=== PATIENT | female | born 1995 ===

== ENCOUNTER 2017-12-19 12:20 | Emergency (ER) | payer OTHER ==
[~2017-12-19] VITALS: Ht 162.6 cm; Wt 80.0 kg
[~2017-12-19 12:20] MED LIST: DIVA125 PO; LAMO25 PO
[2017-12-19] MEDS ORDERED: IOHEXOL 350 MG/ML 10 ML VIAL (for RAD DIAG) IVCONTRAST ONE (12:21)
[2017-12-19] MEDS ORDERED: ONDANSETRON HCL 4 MG/2 ML VIAL ONE (12:33)
[2017-12-19 12:36] VITALS: BP 140/70; PULSE 113; RESP 15; TEMP 98.2; O2SAT 100
[2017-12-19] MEDS ORDERED: LAMO200T PO (12:41)
[2017-12-19] MEDS ORDERED: DIVA125T PO (12:41)
[2017-12-19] MEDS ORDERED: SODIUM CHLOR 0.9% 1000 ML INJ 1,000 ML IV ONE (13:30)
[2017-12-19] MEDS ORDERED: ONDANSETRON HCL 4 MG/2 ML VIAL IV PUSH ONE (13:30)
--- NOTE | 2017-12-19 13:36 | PD ---
HPI Chief Complaint: GI Complaint Time Seen by Provider: 12:35 Travel History International Travel<30 days: No Contact w/Intl Traveler<30days: No Traveled to known affect area: No History of Present Illness HPI 22yo F with PMH of epilepsy and mental retardation here with c/o nausea and NBNB vomiting for 5 days. Said her neurologist Dr. Stoll added her back on depakote 5 days ago because she had a recent seizure. Said she has been on depakote before. Said she stopped taking the depakote a few days ago. PFSH Past Medical History Diminished Hearing: No Medical other: Yes (MENTAL DELAY) Immunizations Current: Yes (UTD WITH CHILDHOOD IMMUNIZATIONS) Seizures: Yes ?: LMP: CURRENT Past Surgical History Other Surgery: Yes (VAGAL NERVE STIMULATOR 4-5 YRS AGO) Social History Alcohol Use: No Tobacco Use: No (PARENT SMOKES) Allergies-Medications (Allergen,Severity, Reaction): Uncoded Allergies: zonagran (Allergy, Unknown, 12/19/17) Reported Meds & Prescriptions Reported Meds & Active Scripts Active Reported Lamotrigine 200 Mg Tab 200 Mg PO BID Divalproex DR (Divalproex Sodium) 125 Mg Tabdr 125 Mg PO BID Review of Systems Except as stated in HPI: all other systems reviewed are Neg Physical Exam Narrative GENERAL: 22yo F in mild distress. SKIN: Focused skin assessment warm/dry. HEAD: Atraumatic. Normocephalic. EYES: Pupils equal and round. No scleral icterus. No injection or drainage. ENT: No nasal bleeding or discharge. Mucous membranes pink and moist. NECK: Trachea midline. No JVD. CARDIOVASCULAR: Regular rate and rhythm. No murmur appreciated. RESPIRATORY: No accessory muscle use. Clear to auscultation. Breath sounds equal bilaterally. GASTROINTESTINAL: Abdomen soft, non-tender, nondistended.No rebound tenderness or guarding. MUSCULOSKELETAL: No obvious deformities. No clubbing. No cyanosis. No edema. NEUROLOGICAL: Awake and alert. No obvious cranial nerve deficits. Motor grossly within normal limits. Normal speech. Data Data Last Documented VS Vital Signs Date Time Temp Pulse Resp B/P (MAP) Pulse Ox O2 Delivery O2 Flow Rate FiO2 12/19/17 12:36 98.2 113 15 140/70 (93) 100 Orders Orders Ondansetron Inj (Zofran Inj) (12/19/17 12:33) Ondansetron Inj (Zofran Inj) (12/19/17 13:30) Sodium Chlor 0.9% 1000 Ml Inj (Ns 1000 M (12/19/17 13:30) Complete Blood Count With Diff (12/19/17 13:29) Comprehensive Metabolic Panel (12/19/17 13:29) Lipase (12/19/17 13:29) Bhcg Screen Qualitative (12/19/17 13:29) Metoclopramide Inj (Reglan Inj) (12/19/17 15:00) Ct Abd/Pel W Iv Contrast(Rout) (12/19/17 ) Promethazine Inj (Phenergan Inj) (12/19/17 16:15) Iohexol 350 Inj (Omnipaque 350 Inj) (12/19/17 12:21) Labs Laboratory Tests Test 12/19/17 13:50 White Blood Count 11.2 TH/MM3 Red Blood Count 4.91 MIL/MM3 Hemoglobin 14.9 GM/DL Hematocrit 44.1 % Mean Corpuscular Volume 89.8 FL Mean Corpuscular Hemoglobin 30.3 PG Mean Corpuscular Hemoglobin Concent 33.7 % Red Cell Distribution Width 12.4 % Platelet Count 242 TH/MM3 Mean Platelet Volume 8.8 FL Neutrophils (%) (Auto) 78.4 % Lymphocytes (%) (Auto) 13.6 % Monocytes (%) (Auto) 7.4 % Eosinophils (%) (Auto) 0.2 % Basophils (%) (Auto) 0.4 % Neutrophils # (Auto) 8.8 TH/MM3 Lymphocytes # (Auto) 1.5 TH/MM3 Monocytes # (Auto) 0.8 TH/MM3 Eosinophils # (Auto) 0.0 TH/MM3 Basophils # (Auto) 0.0 TH/MM3 CBC Comment DIFF FINAL Differential Comment Blood Urea Nitrogen 18 MG/DL Creatinine 0.72 MG/DL Random Glucose 99 MG/DL Total Protein 7.9 GM/DL Albumin 4.1 GM/DL Calcium Level 9.7 MG/DL Alkaline Phosphatase 17 U/L Aspartate Amino Transf (AST/SGOT) 12 U/L Alanine Aminotransferase (ALT/SGPT) 16 U/L Total Bilirubin 0.3 MG/DL Sodium Level 139 MEQ/L Potassium Level 3.9 MEQ/L Chloride Level 106 MEQ/L Carbon Dioxide Level 26.0 MEQ/L Anion Gap 7 MEQ/L Estimat Glomerular Filtration Rate 102 ML/MIN Lipase 99 U/L Beta HCG, Qualitative LESS THAN 1 MIU/ML MDM Medical Decision Making Medical Screen Exam Complete: Yes Emergency Medical Condition: Yes Differential Diagnosis Cyclic vomiting vs. conversion disorder Narrative Course 22yo F here with c/o nausea and vomiting for 5 days. Pt does not actually have vomit but is dry heaving into a bucket. Abdomen is soft, NT/ND. Pt given zofran x2, reglan and is still nauseous. Pt said she has abdominal pain during vomiting. Labs reviewed, WBC 11.2. CMP unremarkable. negative. Will given promethazine IM. Pt given NS IVF. I asked pt's mother if she has this often and she said no and that she normally does not get sick. CTa/p showed no acute process. Pt reevaluated after promethazine and is finally feeling better. Pt tolerating PO now Return precautions given. Diagnosis Primary Impression: Nausea Patient Instructions: General Instructions Departure Forms: Tests/Procedures Additional Instructions: Please follow up with your primary care physician in 2-3 days. Return to the ED if symptoms worsen. Med/Other Pt SpecificInfo: Prescription(s) given Scripts Ondansetron Odt (Zofran Odt) 4 Mg Tab 4 MG SL Q12HR Y for Nausea/Vomiting, #7 TAB 0 Refills Prov: Shanita Girard 12/19/17 Disposition: 01 DISCHARGE HOME Condition: Stable EraJessicaShanita DO Dec 19, 2017 13:35
[2017-12-19 14:08] LABS: AUTOMATED NEUTROPHIL # 8.8 TH/MM3 (1.8-7.7); BASOPHIL % 0.4 % (0.0-2.0); EOSINOPHIL % 0.2 % (0.0-4.0); HEMATOCRIT 44.1 % (35.0-46.0); HEMOGLOBIN 14.9 GM/DL (11.6-15.3); LYMPH % 13.6 % (9.0-44.0); LYMPHOCYTE # 1.5 TH/MM3 (1.0-4.8); MEAN CELL VOLUME 89.8 FL (80.0-100.0); MEAN CORPUSCULAR HEMOGLOBIN 30.3 PG (27.0-34.0); MEAN CORPUSCULAR HGB CONC 33.7 % (32.0-36.0); MEAN PLATELET VOLUME 8.8 FL (7.0-11.0); MONO % 7.4 % (0.0-8.0); MONOCYTE # 0.8 TH/MM3 (0-0.9); NEUT % 78.4 % (16.0-70.0); PLATELET COUNT 242 TH/MM3 (150-450); RED BLOOD COUNT 4.91 MIL/MM3 (4.00-5.30); RED CELL DISTRIBUTION WIDTH 12.4 % (11.6-17.2); WHITE BLOOD COUNT 11.2 TH/MM3 (4.0-11.0)
[2017-12-19 14:27] LABS: ALT (GPT) 16 U/L (10-53)
[2017-12-19 14:32] LABS: ALBUMIN 4.1 GM/DL (3.4-5.0); ALKALINE PHOSPHATASE 17 U/L (45-117); AST (GOT) 12 U/L (15-37); BLOOD UREA NITROGEN 18 MG/DL (7-18); CALCIUM 9.7 MG/DL (8.5-10.1); CHLORIDE 106 MEQ/L (98-107); CREATININE 0.72 MG/DL (0.50-1.00); GLOMERULAR FILTRATION RATE 102 ML/MIN (>89); GLUCOSE,RANDOM 99 MG/DL (74-106); LIPASE 99 U/L (73-393); SODIUM (NA) 139 MEQ/L (136-145); TOTAL BILIRUBIN ADULT 0.3 MG/DL (0.2-1.0); TOTAL PROTEIN 7.9 GM/DL (6.4-8.2)
[2017-12-19] MEDS ORDERED: METOCLOPRAMIDE INJ 10 MG in SODIUM CHLORIDE 0.9% INJ 50 ML IV ONE (15:00)
[2017-12-19] MEDS ORDERED: PROMETHAZINE INJ 25 MG/ML VIAL IM ONE (16:15)
--- NOTE | 2017-12-19 16:50 | RADRPT ---
EXAM DATE/TIME: 12/19/2017 16:34 [facility] COMPARISON: No previous studies available for comparison. INDICATIONS : Vomiting for five days. IV CONTRAST: 75 cc Omnipaque 350 (iohexol) IV ORAL CONTRAST: No oral contrast ingested. RADIATION DOSE: 6.64 CTDIvol (mGy) MEDICAL HISTORY : Seizures. epilepsy SURGICAL HISTORY : None. ENCOUNTER: Initial ACUITY: 4 - 6 days PAIN SCALE: 3/10 LOCATION: abdomen TECHNIQUE: Volumetric scanning of the abdomen and pelvis was performed. Using automated exposure control and ad justment of the mA and/or kV according to patient size, radiation dose was kept as low as reasonably achievable to obtain optimal diagnostic quality images. DICOM format image data is available electro nically for review and comparison. FINDINGS: LOWER LUNGS: The visualized lower lungs are clear. LIVER: Homogeneous density without lesion. There is no dilation of the biliary tree. No calcified gallston es. SPLEEN: Normal size without lesion. PANCREAS: Within normal limits. KIDNEYS: Normal in size and shape. There is no mass, stone or hydronephrosis. ADRENAL GLANDS: Within normal limits. VASCULAR: There is no aortic aneurysm. BOWEL/MESENTERY: The stomach, small bowel, and colon demonstrate no acute abnormality. There is no free intraperitone al air or fluid. ABDOMINAL WALL: Within normal limits. RETROPERITONEUM: There is no lymphadenopathy. BLADDER: No wall thickening or mass. REPRODUCTIVE: Within normal limits. INGUINAL: There is no lymphadenopathy or hernia. MUSCULOSKELETAL: Within normal limits for patient age. CONCLUSION: Negative for acute process.. Dajuan Schilling MD FACR on December 19, 2017 at 16:42 Board Certified Radiologist. This report was verified electronically.
[2017-12-19] MEDS ORDERED: ZOFR4TAB3 SL (17:03)
== END 2017-12-19 18:06 | disposition home or self-care (01) ==
LOC: NEPE 12:20
DX: R11.0 Nausea (principal); R10.9 Unspecified abdominal pain; G40.909 Epilepsy, unspecified, not intractable, without status epilepticus; F79 Unspecified intellectual disabilities; Z79.899 Other long term (current) drug therapy
CPT/HCPCS: 74177; 80053; 83690; 84703; 85025; 96361; 96365; 96372; 96375; 99285; J2405; J2550; J2765; J7030; Q9967